=== PATIENT | female | born 1990 | race Caucasian/White ===

== ENCOUNTER 2022-01-15 10:17 | Emergency (ER) | payer BC, SELFPAY ==
--- NOTE | 2022-01-15 10:21 | ED.URI ---
HPI - URI/Sore Throat General Chief Complaint: Upper Respiratory Infection Stated Complaint: sore throat headache runny nose Time Seen by Provider: 01/15/22 11:04 Source: patient and RN notes reviewed Mode of arrival: ambulatory Limitations: no limitations History of Present Illness HPI Narrative: 31-year-old female presents with concern for 2-day history of sore throat, cough, sinus pressure, headache. Reports taking ibuprofen for her symptoms. She denies any known sick contacts. She denies shortness of breath, nausea, vomiting, diarrhea. Reports she has been taking ibuprofen. MD elicited complaint: sore throat Related Data Allergies Allergy/AdvReac Type Severity Reaction Status Date / Time Penicillins Allergy Hives Verified 01/15/22 10:37 Review of Systems Review of Systems: CONSTITUTIONAL: Reports malaise. Denies chills, sweats, or fever. EYES: Denies visual changes, redness, or discharge. ENT: Reports rhinorrhea, congestion, sore throat. Denies sinus pain, otalgia CARDIOVASCULAR: Denies chest pain, palpitations, or edema. RESPIRATORY: Reports cough. Denies dyspnea. GASTROINTESTINAL: Denies abdominal pain, nausea, vomiting, diarrhea SKIN: Denies rash or itching. MUSCULOSKELETAL: Denies myalgia. NEUROLOGIC: Reports headache. All systems reviewed & are unremarkable except as noted in HPI and below PMFSH Comments At time of signature, agree with nursing past medical, surgical, social and family history. There is no relevant family history pertinent to the presenting complaint Exam Narrative: GENERAL: Well-appearing, well-nourished, and in no acute distress. HEAD: Normocephalic EYES: PERRLA, conjunctivae clear ENT: Nares clear, clear discharge. Mucous membranes moist. TM pearly guzman with sharp light reflex bilaterally; no tragal tenderness. Oropharynx erythematous without lesions. Tonsils not enlarged and without exudate, no drooling, no hoarseness, no trismus, uvula midline. NECK: Supple. No lymphadenopathy CHEST: Clear to auscultation, breath sounds equal. No wheezing, rhonchi, rales, or stridor. No respiratory distress, speaks in full sentences. HEART: Regular rate and rhythm. No murmur heard. SKIN: Warm, dry, no rash. NEURO: Alert and oriented x3. PSYCH: Normal mood and affect Course Course Emergency Course: Patient is aware of diagnosis, understands and agrees to treatment plan. Anticipatory guidance given. Patient agrees to follow-up as directed and is aware of reasons to seek care at the emergency department. Portions of this record may have been created with voice recognition software Level of Care: [facility] Visit Vital Signs Vital signs: Reviewed. MDM - URI/Sore Throat MDM Narrative Medical decision making narrative: Differential diagnosis considered: Castellon virus, strep pharyngitis, allergic rhinitis, upper respiratory tract infection, sinusitis, rhinosinusitis, nasopharyngitis. viral pharyngitis, otitis media, otitis externa, pneumonia, bronchitis, viral cough syndrome, viral syndrome, and influenza. Exam findings show no acute concerns or changes; patient is non-toxic appearing and is in no distress. Patient is appropriate for outpatient treatment and follow-up. Lab Data Attestation: I reviewed the patient's lab results. Critical Care Time Critical Care Time Critical Care Time: No Discharge Plan Discharge Clinical Impression: Upper respiratory infection Patient Disposition: Home, Self-Care Condition: Stable Instructions: Upper Respiratory Infection (ED) Additional Instructions: Your rapid COVID test is negative Your rapid strep swab was negative today at [facility]. A throat culture will be sent to the laboratory for further testing. If the test is positive, you will receive a phone call within 48 hours and an appropriate antibiotic will be initiated at that time. Your symptoms are likely due to a viral illness, which is not treated with antibiotics. Viral symptoms can
[2022-01-15 10:25] VITALS: BP 138/96; PULSE 106; RESP 16; TEMP 37.3; O2SAT 100
== END 2022-01-15 11:17 | disposition home or self-care (01) ==
PROVIDERS: Emergency Provider Nurse Practitioner
DX: J06.9 Acute upper respiratory infection, unspecified (principal); Z20.822 Contact with and (suspected) exposure to COVID-19
CPT/HCPCS: 87081; 87426; 87804; 87880; 99213; C9803; G0463

== ENCOUNTER 2022-09-10 12:14 | Emergency (ER) | payer BC, SELFPAY ==
[2022-09-10 12:21] VITALS: BP 155/108; PULSE 96; RESP 16; TEMP 36.7; O2SAT 100
--- NOTE | 2022-09-10 12:30 | ED.DENTAL ---
HPI - Dental/Oral General Chief complaint: Dental/Oral Stated complaint: Toothache Source: patient Mode of arrival: ambulatory Limitations: no limitations History of Present Illness HPI Narrative: Patient presents for evaluation of right lower dental pain for last few days. She indicates she had a filling placed which follow up recently. She was taking some Tylenol for pain as well as ibuprofen. The medications have lost efficacy. She rates her pain 8/10 severity. No fever, chills, nausea, vomiting, trismus, problems handling secretions. States she is not . No additional complaints or concerns. Related Data Allergies Allergy/AdvReac Type Severity Reaction Status Date / Time Penicillins Allergy Hives Verified 01/15/22 10:37 Review of Systems Review of Systems: CONSTITUTIONAL: Denies fever, chills, or sweats. EYES: Denies visual changes, redness, or discharge. ENT: Reports right lower dental pain. Denies rhinorrhea, congestion, sore throat, or otalgia. CARDIOVASCULAR: Denies chest pain, palpitations, or edema. RESPIRATORY: Denies cough or dyspnea. GASTROINTESTINAL: Denies abdominal pain, nausea, vomiting, or diarrhea. GENITOURINARY: Denies dysuria or hematuria. SKIN: Denies rash or itching. MUSCULOSKELETAL: Denies back pain, joint pain, or myalgia. NEUROLOGIC: Denies headache, numbness, dizziness, or weakness. PSYCHIATRIC: Denies anxiety or depression. [facility] Past Medical History Medical History No pertinent past medical history Surgical History Surgical History No pertinent past surgical history Family History Family History Mother Family history non-contributory Social History Social History Smoking status: Never smoker Substance use: never Gender identity (if verbalized by the patient): Female Spiritual care concerns: No Exam Narrative: GENERAL: Well-appearing, well-nourished, and in no acute distress. HEAD: Normocephalic, atraumatic. EYES: PERRLA and EOMI. ENT: Nares clear, no rhinorrhea or epistaxis. Mucous membranes moist. Oropharynx without tonsillar hypertrophy exudate or other lesions. Tooth #31 is fractured. There is no visible or palpable abscess. Bilateral TMs pearly guzman nonbulging NECK: Supple. No adenopathy or masses. No carotid bruits or JVD CHEST: Clear to auscultation. No respiratory distress. No wheezes rales or rhonchi HEART: Regular rate and rhythm. No murmur heard. Normal peripheral pulses. ABDOMEN: Soft, nontender, nondistended, normal active bowel sounds. EXTREMITIES: Normal range of motion. No edema. SKIN: Warm, dry, no rash. NEURO: No focal deficits. Alert and oriented x3. PSYCH: Normal mood and affect. Course Course Emergency Course: This is a 31-year-old female who presented for evaluation of right lower dental pain. She has a dental fracture noted on exam. Pain has been refractory to ibuprofen and Tylenol. Will discharge with clindamycin due to underlying penicillin allergy will also DC with tramadol. Follow up with dentist. Go to the ER for difficulty breathing or swelling. Patient in agreement plan of care for Level of Care: Express Care Visit Vital Signs Vital signs: Vital Signs Temperature 36.7 C 09/10/22 12:21 Pulse Rate 96 09/10/22 12:21 Respiratory Rate 16 09/10/22 12:21 Blood Pressure 155/108 H 09/10/22 12:21 Pulse Oximetry 100 09/10/22 12:21 Oxygen Delivery Room Air 09/10/22 12:21 Temperature 36.7 C 09/10/22 12:21 Pulse Rate 96 09/10/22 12:21 Respiratory Rate 16 09/10/22 12:21 Blood Pressure 155/108 H 09/10/22 12:21 Pulse Oximetry 100 09/10/22 12:21 Oxygen Delivery Room Air 09/10/22 12:21 Discharge Plan Discharge Clinical Impression: Fracture of too
== END 2022-09-10 12:35 | disposition home or self-care (01) ==
PROVIDERS: Emergency Provider Nurse Practitioner; PCP Emergency Medicine
DX: S02.5XXA Fracture of tooth (traumatic), initial encounter for closed fracture (principal); X58.XXXA Exposure to other specified factors, initial encounter
CPT/HCPCS: 99213; G0463

== ENCOUNTER 2022-09-19 13:35 | Emergency (ER) | payer BC, SELFPAY ==
[2022-09-19 13:40] VITALS: BP 116/70; PULSE 99; RESP 16; TEMP 36.3; O2SAT 100
--- NOTE | 2022-09-19 13:43 | ED.SKABFB ---
HPI - Skin/Abscess/Foreign Bdy General Chief complaint: Skin/Abscess/Foreign Body Stated complaint: Rash Source: patient and RN notes reviewed History of Present Illness HPI narrative: 31 yo F presents to ED with complaints of a rash to her abdomen, neck and face. Pt states she first noticed this rash last night and reports associated pruritis. Pt was started on an Abx, clindamycin, on 09/10/22 for a dental infection. Pt states she started the med on the night of 09/10 and did take a dose this morning. Denies any fevers, chills, SOB, trouble swallowing, vomiting, or diarrhea. Pt has not had anything for her symptoms. Related Data Home Medications Medication Instructions Recorded Confirmed olmesartan 40 1 tablet PO DAILY 09/19/22 09/19/22 mg-hydrochlorothiazide 25 mg tablet semaglutide 2 mg/dose (8 mg/3 mL) See Rx Instructions .Route .COMPLEX 09/19/22 09/19/22 subcutaneous pen injector (Ozempic) Allergies Allergy/AdvReac Type Severity Reaction Status Date / Time Penicillins Allergy Hives Verified 09/19/22 13:53 Review of Systems Review of Systems: CONSTITUTIONAL: Denies fever, chills, or sweats. EYES: Denies visual changes, redness, or discharge. ENT: Denies otalgia and sore throat CARDIOVASCULAR: Denies chest pain, palpitations, or edema. RESPIRATORY: Denies cough or dyspnea. GASTROINTESTINAL: Denies abdominal pain, nausea, vomiting, or diarrhea. GENITOURINARY: Denies dysuria or hematuria. SKIN: Reports rash or itching. MUSCULOSKELETAL: Denies back pain, joint pain, or myalgia. [facility] Past Medical History Medical History (Updated 09/19/22 @ 13:56 by Kenia Jiménez, LAINE) No pertinent past medical history Surgical History Surgical History No pertinent past surgical history Family History Family History Mother Family history non-contributory Social History Social History Smoking status: Never smoker Substance use: never Gender identity (if verbalized by the patient): Female Spiritual care concerns: No Comments At the time of my signature, I reviewed and agree with the nursing past medical, surgical, social, and family history. There is no relevant family history pertinent to the patient complaint. Exam Narrative: GENERAL: This is a well-nourished, well-developed patient, in no apparent distress. HEAD: normocephalic, atraumatic. EYES: PERRL. Sclera clear/white. Vision is grossly intact. EARS: External ears normal, auditory canals clear and without drainage, TMs normal without perforation. Hearing grossly intact. NOSE: External nose normal with no obvious nasal discharge, nares without redness, no rhinorrhea. THROAT: Mucous membranes moist, posterior pharynx clear. NECK: Neck supple, non-tender without lymphadenopathy, masses or thyromegaly. CARDIOVASCULAR: Regular rate and rhythm without murmurs, gallops, or rubs. RESPIRATORY: Clear to auscultation. Breath sounds equal bilaterally. No wheezes, rales, or rhonchi. GASTROINTESTINAL: Abdomen soft, non-tender, nondistended. Bowel sounds are active. No hepato-splenomegaly, or palpable masses. No guarding. SKIN: erythremic, fine, papules noted to anterior and posterior trunk, neck, and chin. no drainage noted. NEURO: awake, alert, and oriented to person, place and time. There were no obvious focal neurologic abnormalities. Course Course Level of Care: Express Care Visit Vital Signs Vital signs: Vital Signs Temperature 97.4 F L 09/19/22 13:40 Pulse Rate 99 09/19/22 13:40 Respiratory Rate 16 09/19/22 13:40 Blood Pressure 116/70 09/19/22 13:40 Pulse Oximetry 100 09/19/22 13:40 Oxygen Delivery Room Air 09/19/22 13:40 Temperature 97.4 F L 09/19/22 13:40 Pulse Rate 99 09/19/22 13:40 Respiratory Rate 16 09/19/22 13:40 Blood Pres
== END 2022-09-19 14:00 | disposition home or self-care (01) ==
PROVIDERS: Emergency Provider Nurse Practitioner Family; PCP Family Medicine
DX: R21 Rash and other nonspecific skin eruption (principal); T78.40XA Allergy, unspecified, initial encounter
CPT/HCPCS: 99213; G0463

== ENCOUNTER 2024-04-26 18:11 | Emergency (ER) | payer OTHER, BC, SELFPAY ==
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
--- NOTE | ~2024-04-26 | XR_ITS ---
AP and oblique views of the left ribs, and PA and lateral chest radiographs Clinical History: Pain Findings: No rib fracture is seen. Osseous alignment is anatomic. Lungs are clear, without focal cons olidation or pleural effusion. Cardiomediastinal contour is within normal limits. Soft tissues are un remarkable. Impression: No rib fracture is seen. Clear lungs. Reviewed, dictated and finalized at location . Impression: No rib fracture is seen. Clear lungs.
--- NOTE | ~2024-04-26 | CT_ITS ---
Noncontrast CT scan of the cervical spine Technique: Multiple contiguous axial [address] images of the cervical spine were obtained and rec onstructed in 2D sagittal and coronal planes on the acquisition scanner. Dose reduction technique was used on this scan by utilizing automated exposure control, adjustment of the mA and/or kV according to patient size. The dose-length product (DLP) was 551.72 mGy-cm. Clinical History: Pain Findings: No fractures or dislocations. Unremarkable visualized bony structures. The intervertebral disc spaces are preserved. No prevertebral soft tissue swelling. Impression: No fracture or subluxation of the cervical spine. Reviewed, dictated and finalized at location . Impression: No fracture or subluxation of the cervical spine.
--- NOTE | ~2024-04-26 | XR_ITS ---
AP view of the pelvis and AP and lateral views of the left hip Clinical history: Pain Findings: No acute fracture or dislocation is seen. Osseous alignment is anatomic. Bilateral hip and SI joint spaces are preserved. Soft tissues are unremarkable. IUD present. Impression: No significant abnormality is seen. Reviewed, dictated and finalized at [facility]. Impression: No significant abnormality is seen.
--- NOTE | ~2024-04-26 | CT_ITS ---
Noncontrast CT scan of the lumbar spine CLINICAL HISTORY: Back pain TECHNIQUE: Axial noncontrast imaging of the lumbar spine was performed. Sagittal and coronal reformat castro images were constructed. Dose reduction technique was used on this scan by utilizing automated ex posure control and iterative reconstruction technique. The dose-length product (DLP) was 1375.41 mGy- cm. FINDINGS: There is no fracture or subluxation of the lumbar spine. Vertebral bodies maintain normal h eight and alignment. Intervertebral disc spaces are relatively well-preserved with mild degenerative disc narrowing at L4-L5. At L1-L2, there is no significant disc bulge or herniation. No spinal canal stenosis or neural forami nal narrowing. At L2-L3, there is minimal disc bulge. No spinal canal stenosis. Probable mild bilateral neural regina inal narrowing. L3-L4, there is mild disc bulge and mild facet joint hypertrophy. No dona central canal stenosis. Th ere is probable minimal bilateral neural foraminal narrowing. At L4-L5, there is minimal disc bulge and mild facet arthropathy. No central canal stenosis. Neural f oramina are preserved. At L5-S1, there is no disc bulge or herniation. No spinal canal stenosis or neural foraminal narrowin g. Paravertebral soft tissues are unremarkable. IUD in place. Gallstones incidentally noted. Impression: No acute abnormality. Mild degenerative spondylosis, as above. Gallstones incidentally noted. Reviewed, dictated and finalized at [facility]. Impression: No acute abnormality. Mild degenerative spondylosis, as above. Gallstones incidentally noted.
[2024-04-26 18:23] VITALS: BP 147/99; PULSE 100; RESP 18; TEMP 36.5; O2SAT 100
[2024-04-26 23:04] VITALS: BP 156/98; PULSE 85; RESP 18; O2SAT 98
[2024-04-27] VITALS (27 sets, daily range): BP systolic 126–163; BP diastolic 80–116; PULSE 66–115; RESP 13–25; TEMP 37.2; O2SAT 97–100
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
--- NOTE | 2024-04-27 01:40 | PC.NURSE ---
pt ambulatory with steady gait to restroom to attempt to provide urine specimen for bedside preg at this time.
[2024-04-27 01:48] LABS: BEDSIDEPREGUCG Negative (Negative)
== END 2024-04-27 03:38 | disposition home or self-care (01) ==
PROVIDERS: Emergency Provider Physician Assistant
DX: S16.1XXA Strain of muscle, fascia and tendon at neck level, initial encounter (principal); E11.9 Type 2 diabetes mellitus without complications; Z79.85 Long-term (current) use of injectable non-insulin antidiabetic drugs; M47.816 Spondylosis without myelopathy or radiculopathy, lumbar region; K80.20 Calculus of gallbladder without cholecystitis without obstruction; V49.40XA Driver injured in collision with unspecified motor vehicles in traffic accident, initial encounter
CPT/HCPCS: 70450; 71046; 71100; 72125; 72131; 73502; 81025; 99284; L0140

== ENCOUNTER 2024-10-24 14:50 | Emergency (ER) | payer BC, SELFPAY ==
--- OUTSIDE RECORDS SUMMARY | 2024-10-24 14:52 | XMS_ITS | CONTINUITY OF CARE DOCUMENT ---
Author Name burt jasonlebron Address Unknown Organization [facility] Address [id number] [place] [address] [address] [place] [address] Phone [phone] Care Team Providers Care Environmental Construction Engineer Name Role Phone Shayy MORALES, Justino Unavailable Justino Lucas MD Unavailable [phone] PROBLEMS Condition Status Date Provider Notes Prediabetes active Justino Lucas MD Vitamin D deficiency active Justino Starkey D B12 deficiency active Justino Lucas MD nml iron Screening active Justino Lucas MD Hyperlipidemia;NEG CRP active Justino Lucas MD Obesity active Justino Lucas MD covid 19;22 post vaccine active Justino garay MD HTN essential active Justino Lucas MD ? Sleep apnea active Justino Lucas MD ENCOUNTERS Date Type Provider Location Encounter Diag nosis - In-person encounter Office Visit Justino [facility] MD [facility] - In-person encounter Office Visit Justino Lucas MD [facility] - In-person encounter Office Visit Justino Lucas MD [facility] Obesitycovid 19;22 post vaccineHTN essential? Sleep apnea VITAL SIGNS Date Observation Value Provider Body Mass Index (Ratio) 36.56 kg/m2 Roque Lucas MD blood pressure, diastolic 124 mm[Hg] Claire Winter blood pressure, systolic 162 mm[Hg] Patrick Winter oxygen saturation, oximetry 99 % Rossi Winter pulse rate 90 /min Rossi man blood pressure, cuff size large Claire Winter respiratory rate E&M 16 /min Amaris Winter weight E&M 213 [lb_av] Rossi man height E&M 64 [in_i] Rossi man Body Mass Index (Ratio) 39.61 kg/m2 Roque Lucas MD blood pressure, diastolic 113 mm[Hg] St dayron Ragsdale blood pressure, systolic 151 mm[Hg] Sta nathalie Ragsdale oxygen saturation, oximetry 96 % Cathy Ragsdale respiratory rate E&M 18 /min Cathy winter pulse rate 85 /min Cathynathalie Ragsdale weight E&M 230.8 [lb_av] Cathynathalie Ragsdale height E&M 64 [in_i] Cathynathalie Ragsdale Body Mass Index (Ratio) 41.71 kg/m2 Roque Lucas MD blood pressure, cuff size large Claire Sanchezand blood pressure, diastolic 123 mm[Hg] Claire Sanchezand blood pressure, systolic 169 mm[Hg] Patrick amato Winter oxygen saturation, oximetry 98 % Rossi Winter respiratory rate E&M 16 /min Amaris Winter pulse rate 69 /min Rossi man height E&M 64 [in_i] Rossi man weight E&M 243 [lb_av] Rossi man ALLERGIES Allergy Name Onset Date Reaction Criticality Status PENICILLIN High Criticality active RESULTS Date Observation Value Provider Reference Range Interpretation Location 2 calcium, serum 8.9 mg/dL [facility] 8.5-10.3 Normal C, [place] [address] 2 blood glucose, random 93 mg/dL [facility] 70-199 Normal , [place] [address] 2 creatine, serum 0.53 mg/dL [facility] 0.60-1.10 Low C, [place] [address] 2 urea nitrogen, blood 12 mg/dL [facility] 8-25 Normal C, [place] [address] 2 anion gap, serum 13 mmol/L [facility] 2-15 Normal , [place] [address] 2 carbon dioxide, venous blood 20 mmol/L [facility] 22-32 Low C, [place] [address] 2 chloride, serum 103 mmol/L [facility] 97-110 Normal , [place] [address] 2 potassium, serum 4.4 MMOL/L [facility] 3.3-4.9 Normal , [place] [address] 2 sodium, serum 137 mmol/L [facility] 135-145 Normal , [place] [address] 2 Estimated Glomerular Filtration Rate (calc) 126 mL/min/{1 .73_m2} [facility] , [place] [address] 2 cholesterol, non-HDL, total 151 [facility]/dL [facility] , [place] [address] 2 HDL CHOLESTEROL 55 mg/dL [facility] >=40 Normal , [place] [address] 2 triglyceride, serum, fasting 81 mg/dL [facility] <=149 Normal , [place] [address] 2 cholesterol, serum 206 mg/dL [facility] 30-199 High [place] [address] 2 c reactive protein, qualitative <3.0 [facility] <=10.0 Normal , [place] [address] 2 microalbumin/cre atinine ratio, urine <10 mg/g [facility] 1-29 Normal [place] [address] 2 creatinine, random, urine 120.5 mg/dL [facility] [place] [address] 2 microalbumin, random, urine <12.0 mg/[facility] [place] [address] 2 Absolute Basophils 0.1 K/CUMM [facility] 0.0-0.1 Normal [place] [address] 2 Absolute Monocytes 0.7 K/CUMM [facility] 0.2-0.8 Normal [place] [address] 2 Absolute Lymphocytes 2.1 K/CUMM [facility] 0.8-3.3 Normal [place] [address] 2 Absolute Neutrophils 6.5 K/CUMM [facility] 1.7-6.5 Normal [place] [address] 2 nucleated red blood cells as percent of blood leukocytes 0.00 K/CUMM [facility] 0.00-0.01 Normal 2 red blood cell distribution width, size density 41.4 fL [facility] 35.7-48.1 Normal 2 mean corpuscular hemoglobin concentration, RBC 32.4 G/DL [facility] 32.3-35.7 Normal 2 mean corpuscular hemoglobin, RBC 28.5 pg [facility] 27.1-33.3 Normal 2 mean corpuscular volume, RBC 88.0 fL [facility] 81.3-96.4 Normal 2 erythrocyte count, whole blood 5.09 M/CUMM [facility] 3.90-5.20 Normal 2 mean platelet volume 11.5 fL [facility] 9.1-12.3 Normal 2 platelet count 272 10*3/uL [facility] 150-400 Normal 2 hematocrit, blood 44.8 % [facility] 35.6-45.5 Normal 2 hemoglobin, blood 14.5 g/dL [facility] 11.9-15.5 Normal HISTORY OF MEDICATION USE Medication Status Instructions Dates Provider Indications Com ments Arelis 2.4 mg/0.75 mL pen injector active 1 pen injector subcutaneously once a week Justino Lucas MD Ozempic 2 mg/dose (8 mg/3 mL) pen injector completed Inject 2 mg subcutaneously once a week - Justino Lucas MD Ozempic 0.25 mg or 0.5 mg(2 mg/1.5 mL) pen injector completed INJECT 1/4 MG SUBCUTANEOUSLY ONCE A WEEK TAKE 0.25MG ONCE A WEEK X4 WEEKS THEN INCREASE TO 0.5MG WEEKLY - Kaleigh Contreras NP olmesartan-hydroch lorothiazide 40-25 mg tablet active 1 tablet by mouth once a day Justino Lucas MD Ozempic 1 mg/dose (4 mg/3 mL) pen injector completed Inject 1 mg subcutaneously once a week - Carlos Green ergocalciferol (vitamin D2) 1,250 mcg (50,000 unit) capsule active 1 capsule by mouth once a month Justino Lucas MD cyanocobalamin (vitamin B-12) 1,000 mcg capsule active 1 capsule by mouth once a day Justino Lucas MD Ozempic 0.25 mg or 0.5 mg(2 mg/1.5 mL) pen injector completed Inject 1/4 mg subcutaneously once a week Take 0.25mg once a week x4 weeks then increase to 0.5mg weekly - Justino Lucas MD SOCIAL HISTORY Date Observation Value Provider smoking status Never smoker Rossi Sanchez and social history E&M S moking History: Chavo lazo has never smoked. Justino Lucas MD social history reviewed E&M revi ewed - no changes required Justino Lucas MD smoking status Never smoker Cathy Ragsdale social history E&M S moking History: Chavo lazo has never smoked. Justino Lucas MD social history reviewed E&M revi ewed - no changes required Justino Lucas MD smoking status Never smoker Rossi Sanchez and INSURANCE PROVIDERS Payer name Policy type / Coverage type [place] red [employer] party ID [facility] [id number] ADVANCE DIRECTIVES Name Date DISCUSSED - NO DECISION MADE TREATMENT PLAN Date Name Performer [id number],C,Lost 30 lbs s amaris 03/2022 Kaleigh Nalluri NEWS SPECIALIST [id number],C,B P 162/124, not controleld well. Not complaint with medications. H er updated medication list for this problem includes: Olmesartan-hydrochlorothiazide 40-25 Mg Tablet (Olmesartan-hydrochlorothiazide) ..... 1 tablet by mouth once a day Orders: 9 9214 MOD 30-39min (CPT-32270) C omplete Echo (CPT-60628) S [facility] Study Home (CPT-20740) S [facility] Study Home (CPT-58762) Kaleigh Nalluri NEWS SPECIALIST [id number],C,Ordered home sleep study Kaleigh Nalluri NEWS SPECIALIST [id number],C, Chol 206,trig 81, HDL 55, LDL 135 Kaleigh Nalluri NEWS SPECIALIST [id number],C,On supplement s Kaleigh Nalluri NEWS SPECIALIST [id number],C,On supplemets Kaleigh Nalluri NEWS SPECIALIST [id number],B, Justino [place] carol MORALES [id number],S, Justino Serot a [id number],S, s x Justino Lucas MD [id number],W, B P today: 151/113 P rior BP: 169/123 (03/22/2022) Labs Reviewed: C hol: 206 (03/22/2022) Justino Lucas MD [id number],S, Justino Serot carol MORALES [id number],S, Justino Serot a [id number],S, N EG UACR AND A2C AND ECHO Justino Lucas MD [id number],S, Justino Serot carol MORALES [id number],C,NEG UACR AND A2C AND ECHO Justino Lucas MD [id number],C,nml a1c and u acr Justino Lucas MD [id number],S,sx Justino Ser olvin MORALES [id number],S, Justino Serot carol MORALES [id number],S, Justino Serot carol MORALES [id number],S, Justino Serot carol MORALES Cardiology:Lost 30 lbs since 03/12 022 Kaleigh Nalluri NEWS SPECIALIST Cardiology:BP 162/12 4, not controleld well. Not complaint with medications. H er updated medication list for this problem includes: Olmesartan-hydrochlorothiazide 40-25 Mg Tablet (Olmesartan-hydrochlorothiazide) ..... 1 tablet by mouth once a day Orders: 9 9214 MOD 30-39min (CPT-26189) C omplete Echo (CPT-47222) S lee Study Home (CPT-97230) S lee Study Home (CPT-84501) Kaleigh Nalluri NEWS SPECIALIST Cardiology:Ordered home sleep st udy Kaleigh Nalluri NEWS SPECIALIST Cardiology: Chol 206,trig 81, HDL 55, LDL 135 Kaleigh Nalluri NEWS SPECIALIST Cardiology:On supplements Neelim a Nalluri NEWS SPECIALIST Cardiology:On supplemets Kaleigh Nalluri NEWS SPECIALIST Cardiology Justino Lucas MD Cardiology Justino Lucas MD Cardiology: s x Justino Lucas MD Cardiology: B P today: 151/113 P rior BP: 169/123 (03/22/2022) Labs Reviewed: C hol: 206 (03/22/2022) Justino Lucas MD Cardiology Justino Lucas MD Cardiology Justino Lucas MD Cardiology: N EG UACR AND A2C AND ECHO Justino Lucas MD Cardiology Justino Lucas MD :NEG UACR AND A2C AND ECHO Jose Alfredo Lucas MD :nml a1c and uacr Justino Lucas MD Cardiology:sx Justino Lucas MD Cardiology Justino Lucas MD Cardiology Justino Lucas MD Cardiology Justino Lucas MD Date Name Sleep Study Home Complete Echo Complete Echo Sleep Study Home Sleep Study Home VITAMIN B12 Vitamin D, 25-Hydrox y IRON AND TOTAL IRON BINDING CAPACITY FERRITIN CBC (INCLUDES DIFF/P LT) CRP, high sensitivit y Microalb/Creatinine Urine, Random HEMOGLOBIN A1c BASIC METABOLIC PANE L W/EGFR LIPID PANEL Complete Echo
--- OUTSIDE RECORDS SUMMARY | 2024-10-24 14:52 | XMS_ITS | Referral Summary ---
Author Organization [facility] Address [address] [place] [address] Care Team Providers Care Application Software Engineer Name Role Phone Unavailable Primary Care Provider Unavailabl e Source Comments [facility],non-owned Affiliates and Associated Physician Practices is amultiple site organization consisting of ambulatory clinics and hospital sitesin [place], [place], [place] and [place]. This disclosure is being madepursuant to the Care Everywhere program and may not contain all information available regarding this patient. Last updated 18.[facility] [employer] Allergies No known active allergies Medications Be aware that medications may not be up to date on this document. Always verify current medications with the patient. No known medications Active Problems No known active problems Social History Tobacco Use Types Packs/Day Years Used Date Smoking Tobacco: Never Smokeless Tobacco: Never Sex and Gender Information Value Date Recorded Sex Assigned at Not on file Gender Identity Not on file Sexual Orientation Not on file Last Filed Vital Signs Vital Sign Reading Time Taken Comments Blood Pressure 124/70 12/11/2020 10:39 AM CDT Pulse 70 12/11/2020 10:39 AM CDT Temperature 36.9 C (98.4 F) 12/11/2020 10:39 AM CDT Respiratory Rate 20 12/11/2020 10:39 AM CDT Oxygen Saturation 98% 04/03/2020 3:42 PM CDT Inhaled Oxygen Concentration - - Weight 105.7 kg (233 lb) 12/11/2020 10:39 AM CDT Height 165.1 cm (5' 5 ) 04/03/2020 3:42 PM CDT Body Mass Index 38.77 04/03/2020 3:42 PM CDT Plan of Treatment Not on file
--- OUTSIDE RECORDS SUMMARY | 2024-10-24 14:52 | XMS_ITS | Patient Health Summary ---
Author Organization [facility] Address [address] [place] [address] Care Team Providers Care Implementation Technician Name Role Phone Unavailable Primary Care Provider Unavailabl e Note from [facility],non-owned Affiliates and Associated Physician Practices is amultiple site organization consisting of ambulatory clinics and hospital sitesin [place], [place], [place] and [place]. This disclosure is being madepursuant to the Care Everywhere program and may not contain all information available regarding this patient. Last updated 18.[facility] Allergies No known active allergies Medications Be [...] Mass Index 38.77 04/03/2020 3:42 PM CDT Procedures * CULTURE RESPIRATORY UPPER(Performed 12/11/2020) Performed for Acute pharyngitis, unspecified etiology * STREP A SCREEN - POINT OF CARE (AMB) STL(Performed 12/11/2020) Performed for Acute pharyngitis, unspecified etiology * CULTURE URINE(Performed 04/03/2020) Performed for Acute cystitis with hematuria * URINALYSIS AUTO - POINT OF CARE (AMB) STL(Performed 04/03/2020) Performed for Acute cystitis with hematuria * CULTURE URINE(Performed 01/19/2020) Performed for Acute cystitis without hematuria * URINALYSIS AUTO - POINT OF CARE (AMB) STL(Performed 01/19/2020) Performed for Acute cystitis without hematuria * URINALYSIS AUTO - POINT OF CARE (AMB) STL(Performed 01/19/2019) Performed for Urinary tract infection without hematuria, site unspecified Results * CULTURE RESPIRATORY UPPER (12/11/2020 10:47 AM CDT) [facility] Upper Respiratory Culture Final report [facility] ACCOUNT BILL Result 1 [facility] ACCOUNT BILL Comment:Routine respiratory martínez Microbiology ENTIRE THROAT (SURFACE REGION OF NECK) / Unknown 12/11/2020 10:47 AM CDT 12/11/2020 Narrative Resulting Agency Comment Lab Testing performed at: [facility] [address] [phone] Niko Chadwick APRN-BALLISTIC TECHNICIAN LAB - MICRO BIOLOGY ORDERABLES Performing Organization Address City/[facility]/ZIP Co de Phone Number [facility] ACCOUNT BILL [address] [place] [address] * STREP A SCREEN - POINT OF CARE (AMB) STL (12/11/2020 10:43 AM CDT) Pathologist [facility] Strep A Rapid POCT Negative Negative [facility] Strep A Internal Control Present [facility] Lot # [id number] [facility] Expiration Date [id number] [facility] Throat ENTIRE THROAT (SURFACE REGION OF NECK) / Unknown 12/11/2020 10:43 AM CDT Niko Chadwick APRN-BALLISTIC TECHNICIAN LAB - POINT OF CARE ORDERABLES [facility] [address] [phone] * CULTURE URINE (04/03/2020 3:58 PM CDT) Only the most recent of2 resultswithin the time period is included. Pathologist [facility] Urine Culture Routine Final report [facility] ACCOUNT BILL Result 1 No growth [facility] ACCOUNT BILL Urine URINE SPECIMEN OBTAINED BY CLEAN CATCH PROCEDURE / Unknown 04/03/2020 3:58 PM CDT 04/03/2020 Narrative Resulting Agency Comment Lab Testing performed at: [facility] [address] [phone] Niko Chadwick VICE PRESIDENT INTEGRATED-BALLISTIC TECHNICIAN LAB - MICRO BIOLOGY ORDERABLES [facility] ACCOUNT BILL [address] [place] [address] * URINALYSIS AUTO - POINT OF CARE (AMB) STL (04/03/2020 3:52 PM CDT) Only the most recent of3 resultswithin the time period is included. Pathologist [facility] Clarity UA POCT azo Color UA POCT red Leukocyte UA azo Negative Nitrite UA POCT azo Negative Urobilinogen UA 0.2 0.1 - 1.0 Protein UA POCT azo Negative pH UA 5.0 5.0 - 8.0 pH units Blood UA 50 Negative Specific Fraser UA POCT 1.030 1.002 - 1.030 Ketone UA azo Negative Bilirubin UA POCT azo Negative Glucose UA azo Negative Expiration Date 1 Lot # [id number] QC Verified Yes Yes Urine URINE / Unknown 04/03/2020 3 :52 PM CDT Niko Chadwick VICE PRESIDENT INTEGRATED-BALLISTIC TECHNICIAN LAB - POINT OF CARE ORDERABLES
--- OUTSIDE RECORDS SUMMARY | 2024-10-24 14:52 | XMS_ITS | Clinical Summary ---
Author Organization [facility] Address [address] [place] [address] Care Team Providers Care Business Control Manager Name Role Phone Unavailable Primary Care Provider Unavailabl e Source Comments [facility],non-owned Affiliates and Associated Physician Practices is amultiple site organization consisting of ambulatory clinics and hospital sitesin [place], [place], [place] and [place]. This disclosure is being madepursuant to the Care Everywhere program and may not contain all information available regarding this patient. Last updated 18.[facility] Allergies No known active allergies Medications Be [...] 04/03/2020 3:42 PM CDT Plan of Treatment Health Maintenance Due Date Last Done Comments PAP SMEAR 1989 HIV SCREENING 2004 HEPATITIS C SCREENING 11/02/2007 DTAP/TDAP/TD VACCINES (1 - Tdap) 2008 HEPATITIS B VACCINE (1 of 3 - 19+ 3-dose series) 2008 COVID-19 VACCINE (1 - 2023-2 5 season) 2024 INFLUENZA VACCINE (#1) 2024 DEPRESSION SCREENING 08/11/2024 ZOSTER VACCINE (1 of 2) 11/07/2039 HIB VACCINE Aged Out No longer eligi ble based on patient's age to complete this topic HPV VACCINE Aged Out No longer eligi ble based on patient's age to complete this topic MENINGOCOCCAL (Group B) VACC INE SHARED DECISION-MAKING Aged Out No longer eligibl e based on patient's age to complete this topic MENINGOCOCCAL GROUPS A/C/Y/W VACCINE Aged Out No longer eligible b ased on patient's age to complete this topic PNEUMOCOCCAL VACCINE Aged Out No long er eligible based on patient's age to complete this topic
--- OUTSIDE RECORDS SUMMARY | 2024-10-24 14:54 | XMS_ITS | CONTINUITY OF CARE DOCUMENT ---
Author Name burt jasonlebron Address Unknown Organization [facility] Address [address] [place] [address] [address] [place] [address] Phone [phone] Care Team Providers Care Professor Of Theology Name Role Phone Shayy MORALES, Justino Unavailable [phone] Justino Lucas MD Unavailable PROBLEMS Condition Status Date Provider Notes Prediabetes [...] In-person encounter Office Visit Justino Lucas MD [facility] - In-person encounter Office Visit Justino Lucas MD [facility] - In-person encounter Office Visit Justino Lucas MD [facility] Obesitycovid 19;22 post vaccineHTN essential? Sleep [...] serum 8.9 mg/dL [facility] 8.5-10.3 Normal C, [place] [address] 2 blood glucose, random 93 mg/dL [facility] 70-199 Normal , [place] [address] 2 creatine, serum 0.53 mg/dL [facility] 0.60-1.10 Low C, [place] [address] 2 urea nitrogen, blood 12 mg/dL [facility] 8-25 Normal C, [place] [address] 2 anion gap, serum 13 mmol/L [facility] 2-15 Normal , [place] [address] 2 carbon dioxide, venous blood 20 mmol/L [facility] 22-32 Low C, [place] [address] 2 chloride, serum 103 mmol/L [facility] 97-110 Normal , [place] [address] 2 potassium, serum 4.4 MMOL/L [facility] 3.3-4.9 Normal , [place] [address] 2 sodium, serum 137 mmol/L [facility] 135-145 Normal , [place] [address] 2 Estimated Glomerular Filtration Rate (calc) 126 mL/min/{1 .73_m2} [facility] , [place] [address] 2 cholesterol, non-HDL, total 151 mg[facility] [place] [address] 2 HDL CHOLESTEROL 55 mg/dL [facility] >=40 Normal , [place] [address] 2 triglyceride, serum, fasting 81 mg/dL [facility] <=149 Normal , [place] [address] 2 cholesterol, serum 206 mg/dL [facility] 30-199 High [place] [address] 2 c reactive protein, qualitative <3.0 [facility] <=10.0 Normal , [place] [address] 2 microalbumin/cre atinine ratio, urine <10 mg/g [facility] 1-29 Normal [place] [address] 2 creatinine, random, urine 120.5 mg/dL [facility] [place] [address] 2 microalbumin, random, urine <12.0 mg/[facility] [place] [address] 2 Absolute Basophils 0.1 K/CUMM [facility] 0.0-0.1 Normal [place] [address] 2 Absolute Monocytes 0.7 K/CUMM [facility] 0.2-0.8 Normal [place] [address] 2 Absolute Lymphocytes 2.1 K/CUMM [facility] 0.8-3.3 Normal [place] [address] 2 Absolute Neutrophils 6.5 K/CUMM [facility] 1.7-6.5 Normal [place] [address] 2 nucleated red blood cells as percent [...] Payer name Policy type / Coverage type [place] red democrat ID [facility] [id number] ADVANCE DIRECTIVES Name Date DISCUSSED - NO DECISION MADE TREATMENT PLAN Date Name Performer [id number],C,Lost 30 lbs s amaris 03/2022 Kaleigh Nalluri ESTATE AGENT [id number],C,B P 162/124, not controleld well. Not complaint with medications. H er updated medication list for this problem includes: Olmesartan-hydrochlorothiazide 40-25 Mg Tablet (Olmesartan-hydrochlorothiazide) ..... 1 tablet by mouth once a day Orders: 9 9214 MOD 30-39min (CPT-88847) C omplete Echo (CPT-25307) S [facility] Study Home (CPT-54054) S [facility] Study Home (CPT-63361) Kaleigh Nalluri ESTATE AGENT [id number],C,Ordered home sleep study Kaleigh Nalluri ESTATE AGENT [id number],C, Chol 206,trig 81, HDL 55, LDL 135 Kaleigh Nalluri ESTATE AGENT [id number],C,On supplement s Kaleigh Nalluri ESTATE AGENT [id number],C,On supplemets Kaleigh Nalluri ESTATE AGENT [id number],B, Justino [place] carol MORALES [id number],S, Justino Serot a [id number],S, s x Justino Lucas MD [id number],W, B P today: 151/113 P rior BP: 169/123 (03/22/2022) Labs Reviewed: C hol: 206 (03/22/2022) Justino Lucas MD [id number],S, Justino Serot carol MORALES [id number],S, Justino Serot a [id number],S, N EG UACR AND A2C AND ECHO Justino Lucas MD [id number],S, Justino Serot carol MORALES [id number],C,NEG UACR AND A2C AND ECHO Justino Lucas MD [id number],C,nml a1c and u acr Justino Lucas MD [id number],S,sx Justino Ser olvin MORALES [id number],S, Justino Serot carol MORALES [id number],S, Justino Serot carol MORALES [id number],S, Justino Serot carol MORALES Cardiology:Lost 30 lbs since 03/12 022 Kaleigh Nalluri ESTATE AGENT Cardiology:BP 162/12 4, not controleld well. Not complaint with medications. H er updated medication list for this problem includes: Olmesartan-hydrochlorothiazide 40-25 Mg Tablet (Olmesartan-hydrochlorothiazide) ..... 1 tablet by mouth once a day Orders: 9 9214 MOD 30-39min (CPT-70202) C omplete Echo (CPT-65572) S lee Study Home (CPT-41626) S lee Study Home (CPT-52491) Kaleigh Nalluri ESTATE AGENT Cardiology:Ordered home sleep st udy Kaleigh Nalluri ESTATE AGENT Cardiology: Chol 206,trig 81, HDL 55, LDL 135 Kaleigh Nalluri ESTATE AGENT Cardiology:On supplements Neelim a Nalluri ESTATE AGENT Cardiology:On supplemets Kaleigh Nalluri ESTATE AGENT Cardiology Justino Lucas MD Cardiology Justino Lucas [...] a1c and uacr Justino Lucas MD Cardiology:sx Jsutino Lucas MD Cardiology Justino Lucas MD Cardiology [...]
[2024-10-24 14:59] VITALS: BP 148/97; PULSE 112; RESP 16; TEMP 36.2; O2SAT 99
--- NOTE | 2024-10-24 15:11 | ED_ITS ---
HPI - URI/Sore Throat General Chief Complaint: Upper Respiratory Infection Stated Complaint: Cough/Body Aches/Light Headed Time Seen by Provider: 10/24/24 15:11 Source: patient, RN notes reviewed and old records reviewed Mode of arrival: ambulatory Limitations: no limitations History of Present Illness HPI Narrative: 33 year old female who presents to [facility] care with complaints of cough,congestion, body aches,fevers, and feels light headed at times since . Patient reports that she has been taking Tylenol cold and flu for her symptoms. Patient reports that she has been exposed to flu from a coworker. MD elicited complaint: fever, cough, rhinorrhea, nasal congestion and other (body aches, light headed) Onset (ago): day(s) (4 days) Consistency: constant Severity: moderate Pain scale (0-10): 7 Able to tolerate fluids by mouth: Yes Treatments prior to arrival: other (Tylenol cold and flu) Related Data Home Medications ?Medication ?Instructions ?Recorded ?Confirmed ?Last Taken ?Type levonorgestrel (Mirena) 1 device intrauterine ONCE 10/24/24 Unknown History Allergies Allergy/AdvReac Type Severity Reaction Status Date / Time Penicillins Allergy Hives Verified 10/24/24 14:57 Review of Systems Review of Systems: CONSTITUTIONAL: reports malaise, chills, sweats, or fever. EYES: Denies visual changes, redness, or discharge. ENT: Reports rhinorrhea, congestion, no sinus pain, no otalgia and no sore throat. CARDIOVASCULAR: Denies chest pain, palpitations, or edema. RESPIRATORY: Reports cough.? Denies dyspnea. GASTROINTESTINAL: Denies abdominal pain, nausea, vomiting, diarrhea SKIN: Denies rash or itching. MUSCULOSKELETAL:Reports myalgia. NEUROLOGIC: Denies headache. All systems reviewed & are unremarkable except as noted in HPI and below [facility] Past Medical History Medical History (Updated 10/25/24 @ 22:09 by Ana Marques NP) Rosacea Diabetes Hypertension GERD (gastroesophageal reflux disease) Surgical History Surgical History No pertinent past surgical history Family History Family History Mother Family history non-contributory Social History Social History Smoking status: Never smoker Substance use: never Gender identity (if verbalized by the patient): Female Spiritual care concerns: No Comments At time of signature, agree with nursing past medical, surgical, social and family history. There is no relevant family history pertinent to the presenting complaint Exam Narrative: GENERAL: Well-appearing, well-nourished, and in no acute distress. HEAD: Normocephalic EYES: PERRLA, conjunctivae clear ENT: Nares clear, turbinates edematous and erythematous, clear discharge. Mucous membranes moist. TM pearly guzman with dull light reflex bilaterally; no tragal tenderness. Oropharynx erythematous without lesions. Tonsils not enlarged and without exudate, no drooling, no hoarseness, no trismus, uvula midline.post nasal drainage NECK: Supple. No lymphadenopathy CHEST: Clear to auscultation, breath sounds equal. No wheezing, rhonchi, rales, or stridor. No respiratory distress, speaks in full sentences. frequent cough noted SAO2 99% on room air HEART: Regular rate and rhythm. No murmur heard. SKIN: Warm, dry, no rash. NEURO: Alert and oriented x3. PSYCH: Normal mood and affect Course Course Emergency Course: Patient is aware of diagnosis, understands and agrees to treatment plan.? Anticipatory guidance given.? Patient agrees to follow-up as directed and is aware of reasons to seek care at the emergency department. Portions of this record may have been created with voice recognition software Level of Care: Express Care Visit Vital Signs Vital signs: Vital Signs Temperature 36.2 C L 10/24/24 14:59 Pulse Rate 112 H 10/24/24 14:59 Respiratory Rate 16 10/24/24 14:59 Blood Pressure 148/97 H 10/24/24 14:59 Pulse Oximetry 99 10/24/24 14:59 Oxygen Delivery Room Air 10/24/24 14:59 Temperature 36.2 C L 10/24/24 14:59 Pulse Rate 112 H 10/24/24 14:59 Respiratory Rate 16 10/24/24 14:59 Blood Pressure 148/97 H 10/24/24 14:59 Pulse Oximetry 99 10/24/24 14:59 Oxygen Delivery Room Air 10/24/24 14:59 Reviewed MDM - URI/Sore Throat MDM Narrative Medical decision making narrative: Differential diagnosis considered: Castellon virus, strep pharyngitis, allergic rhinitis, upper respiratory tract infection, sinusitis, rhinosinusitis, nasopharyngitis. viral pharyngitis, otitis media, otitis externa, pneumonia, bronchitis, viral cough syndrome, viral syndrome, and influenza.? Exam findings show no acute concerns or changes; patient is non-toxic appearing and is in no distress.? Patient is appropriate for outpatient treatment and follow-up. Differential Diagnosis Differential diagnosis: Likely upper respiratory infection, viral infection, influenza and other ( acute cough) Medical Records Attestation: I reviewed the patient's medical records. Lab Data Attestation: I reviewed the patient's lab results. Lab results narrative: Influenza A positive, Influenza B negative Labs: Lab Results 10/24/24 10/24/24 Range/Units 15:00 16:15 POC Influenza A Ag Positive Negative (Negative) POC Influenza B Ag Negative Negative (Negative) reviewed Critical Care Time Critical Care Time Critical Care Time: No Discharge Plan Discharge Clinical Impression: Influenza A Patient Disposition: Home, Self-Care Condition: Stable Instructions: Antibiotic Form, Influenza (ED) Additional Instructions: Increase fluids especially juices and water [id number] cough and cold medicine of your choice for your symptoms Prescription cough medicine as directed--caution drowsiness and no driving or alcohol Zyrtec Claritin or Sade daily Alternate Tylenol and ibuprofen for any fever pain heat to the face 20-30 minutes 4-6 times a day for pain Salt water gargles, throat lozenges or throat sprays as desired You must be fever free for 24 hours without use of Tylenol or ibuprofen before you can return to work typically influenza last about 5 days from start of symptoms You must quarantine until that time. Monitor fevers Patient Language: [place] Prescriptions: New promethazine-DM 6.25-15 mg/5 mL syrup 5 ml PO Q4-6H PRN (Reason: cough) Qty: 118 0RF Rx Instructions: for cough No Action Mirena 21 mcg/24hr (up to 8 yrs) 52 mg intrauterine device 1 device intrauterine ONCE Rx Instructions: as a single dose Follow-up/Referrals: PHYSICIAN,LEGAL SPECIALIST [Primary Care Provider] - Stand Alone Forms: Work/School Release IP Time of Disposition: 15:21 Quality Isola Coma Scale Eyes: Open Verbal: Oriented and Alert Motor: Follows Commands Isola Coma Total Score: 15
[2024-10-24 16:17] LABS: EDINFLUASCREEN Negative (Negative); EDINFLUBSCREEN Negative (Negative)
[2024-10-24 16:17] LABS: EDINFLUASCREEN Positive (Negative); EDINFLUBSCREEN Negative (Negative)
== END 2024-10-24 15:28 | disposition home or self-care (01) ==
PROVIDERS: Emergency Provider Registered Nurse
DX: J10.1 Influenza due to other identified influenza virus with other respiratory manifestations (principal); E11.9 Type 2 diabetes mellitus without complications; I10 Essential (primary) hypertension; K21.9 Gastro-esophageal reflux disease without esophagitis; L71.9 Rosacea, unspecified
CPT/HCPCS: 87804; 99213; G0463

== ENCOUNTER 2025-04-17 16:23 | Emergency (ER) | payer BC, SELFPAY ==
--- OUTSIDE RECORDS SUMMARY | 2025-04-17 16:26 | XMS_ITS | Clinical Summary ---
Author Organization [facility] Address [address] [place] [address] Care Team Providers Care Saw Grinder Name Role Phone Unavailable Primary Care Provider Unavailabl e Source Comments [facility],non-owned Affiliates and Associated Physician Practices is amultiple site organization consisting of ambulatory clinics and hospital sitesin [place], [place], [place] and [place]. This disclosure is being madepursuant to the Care Everywhere program and may not contain all information available regarding this patient. Last updated 18.[facility] Trippy Bandz Allergies No known active allergies Medications * Be aware that medications may not be up to date on this document. Alwaysverify current medications with the patient. No known medications Active Problems No known active problems Social History Tobacco Use Types Packs/Day Years Used Date Smoking Tobacco: Never Smokeless Tobacco: Never Comments No Sex and Gender Information Value Date Recorded Sex Assigned at Not on file Legal Sex Female 1:04 PM CDT Gender Identity Not on file Sexual Orientation [...] 10:39 AM CDT Height 165.1 cm (5' 5) 04/03/2020 3:42 PM CDT Body Mass Index 38.77 04/03/2020 3:42 PM CDT Plan of Treatment Health Maintenance Due Date Last Done Comments HIV SCREENING 2004 HEPATITIS C SCREENING 11/02/2007 DTAP/TDAP/TD VACCINES (1 - Tdap) 2008 HEPATITIS B VACCINE (1 of 3 - 19+ 3-dose series) 2008 HPV VACCINE (1 - 3-dose SCDM series) 2016 COVID-19 VACCINE (1 - 2023-2 5 season) 2024 DEPRESSION SCREENING 08/11/2024 INFLUENZA VACCINE (#1) 2025 ZOSTER VACCINE (1 of 2) 11/07/2039 HIB [...] on patient's age to complete this topic Insurance [facility]
[2025-04-17 16:32] VITALS: BP 150/105; PULSE 92; RESP 16; TEMP 36.6; O2SAT 100
--- NOTE | 2025-04-17 17:12 | ED.EAR ---
HPI - Ear Problem General Chief complaint: Ear Stated complaint: Ear discharge Time Seen by Provider: 04/17/25 16:45 Source: patient and RN notes reviewed Mode of arrival: ambulatory Limitations: no limitations History of Present Illness HPI Narrative: 34-year-old female presents Express Care complaining bilateral ear drainage in right ear pain since yesterday. Patient reports clear/yellow drainage coming out of her ears. Patient's his right ear is tender. Patient does use recently sick 1 week ago but reports feeling better. Patient denies any cough, congestion, runny nose, sore throat, chest pain, shortness of breath, nausea, vomiting, diarrhea, tinnitus, dizziness, or any other symptoms. Patient denies any recent swimming. Related Data Home Medications ?Medication ?Instructions ?Recorded ?Confirmed ?Last Taken ?Type levonorgestrel (Mirena) 1 device intrauterine ONCE 10/24/24 Unknown History Allergies Allergy/AdvReac Type Severity Reaction Status Date / Time Penicillins Allergy Hives Verified 04/17/25 16:36 Review of Systems Review of Systems: CONSTITUTIONAL: Denies fever, chills, or sweats. EYES: Denies visual changes, redness, or discharge. ENT: Denies rhinorrhea, congestion, sore throat. Positive for otalgia and otorrhea. CARDIOVASCULAR: Denies chest pain, palpitations, or edema. RESPIRATORY: Denies cough or dyspnea. GASTROINTESTINAL: Denies abdominal pain, nausea, vomiting, or diarrhea. GENITOURINARY: Denies dysuria or hematuria. SKIN: Denies rash or itching. MUSCULOSKELETAL: Denies back pain, joint pain, or myalgia. NEUROLOGIC: Denies headache, numbness, or weakness. PSYCHIATRIC: Denies anxiety or depression. All other systems reviewed are negative, except as documented in HPI. [facility] Past Medical History Medical History Rosacea Diabetes Hypertension GERD (gastroesophageal reflux disease) Surgical History Surgical History No pertinent past surgical history Family History Family History Mother Family history non-contributory Social History Social History Smoking status: Never smoker Substance use: never Gender identity (if verbalized by the patient): Female Spiritual care concerns: No Comments At the time of my signature, I reviewed and agree with the nursing past medical, surgical, social, and family history. There is no relevant family history pertinent to the patient complaint. Exam Narrative: GENERAL: This is a well-nourished, well-developed adult, in no apparent distress. They are non ill-appearing, nontoxic appearing. HEAD: normocephalic, atraumatic. EYES: Sclera clear/white. Conjunctiva normal. Vision is grossly intact. Extraocular movements intact EARS: External ears normal, auditory canals erythematous bilaterally, right auditory canal worse than left, no obvious discharge, no tragal tenderness. TMs normal without perforation. Hearing grossly intact. NOSE: External nose normal with no obvious nasal discharge, nasal turbinates without redness, no rhinorrhea. THROAT: Mucous membranes moist, posterior pharynx clear, without erythema or swelling. Uvula midline. NECK: Neck supple, non-tender without lymphadenopathy, masses or thyromegaly. CARDIOVASCULAR: Regular rate and rhythm without murmurs, gallops, or rubs. RESPIRATORY: Clear to auscultation. Breath sounds equal bilaterally. No wheezes, rales, or rhonchi. SKIN: warm, Dry, intact with no suspicious lesions or rash, good texture and turgor. NEURO: awake, alert, and oriented to person, place and time. There were no obvious focal neurologic abnormalities. EXTREMITIES: No joint tenderness, effusion, or edema noted. Course Course Emergency Course: Portions of this record may have been created with voice recognition software Level of Care: Express Care Visit Vital Signs Vital signs: Vital Signs Temperature 97.8 F 04/17/25 16:32 Pulse Rate 92 04/17/25 16:32 Respiratory Rate 16 04/17/25 16:32 Blood Pressure 150/105 H 04/17/25 16:32 Pulse Oximetry 100 04/17/25 16:32 Oxygen Delivery Room Air 04/17/25 16:32 Temperature 97.8 F 04/17/25 16:32 Pulse Rate 92 04/17/25 16:32 Respiratory Rate 16 04/17/25 16:32 Blood Pressure 150/105 H 04/17/25 16:32 Pulse Oximetry 100 04/17/25 16:32 Oxygen Delivery Room Air 04/17/25 16:32 Reviewed Medical Decision Making MDM Narrative Medical decision making narrative: Patient likely has otitis externa worse on the right and left will go ahead and treat both with ofloxacin ear drops. Discussed physical exam findings. Advised supportive measures and signs/symptoms to go to the ER. Pt is appropriate for outpt treatment and f/u. Differential Diagnosis Differential Diagnosis: Otitis media, otitis externa, upper respiratory infection Vital Signs Vital Signs: Vital Signs Temperature 97.8 F 04/17/25 16:32 Pulse Rate 92 04/17/25 16:32 Respiratory Rate 16 04/17/25 16:32 Blood Pressure 150/105 H 04/17/25 16:32 Pulse Oximetry 100 04/17/25 16:32 Oxygen Delivery Room Air 04/17/25 16:32 Temperature 97.8 F 04/17/25 16:32 Pulse Rate 92 04/17/25 16:32 Respiratory Rate 16 04/17/25 16:32 Blood Pressure 150/105 H 04/17/25 16:32 Pulse Oximetry 100 04/17/25 16:32 Oxygen Delivery Room Air 04/17/25 16:32 Critical Care Time Critical Care Time Critical Care Time: No Discharge Plan Discharge Clinical Impression: Otitis externa Qualifiers: Otitis externa type: diffuse Chronicity: acute Laterality: bilateral Qualified Code(s): H60.313 - Diffuse otitis externa, bilateral Patient Disposition: Home Condition: Stable Instructions: Antibiotic Form, How to Use Ear Drops (ED), Ear Infection (ED) Additional Instructions: Take antibiotic drops as directed. You may take ibuprofen 600 mg to 800 mg every 6-8 hours. Do not exceed more than 800 mg of ibuprofen per dose. Do not exceed more than 3200 mg ibuprofen in a day. You may take up to 1000 mg Tylenol every 6-8 hours. Do not exceed 1000 mg per dose, do exceed more than 4000 mg of Tylenol in a day. Avoid water or anything into the ear for one week, do not use peroxide in your ears. Follow up with your personal physician for further evaluation and treatment within 3-5days. If your symptoms persist, change or worsen significantly, go to the emergency department for further evaluation. Patient Language: Turkish Prescriptions: New ofloxacin 0.3 % drops 10 drp EACH EAR DAILY 7 Days Qty: 10 0RF No Action Mirena 21 mcg/24hr (up to 8 yrs) 52 mg intrauterine device 1 device intrauterine ONCE Rx Instructions: as a single dose Follow-up/Referrals: George Kaiser MD [Physician, Family Practice] Time of Disposition: 16:56
== END 2025-04-17 17:00 | disposition home or self-care (01) ==
DX: H60.313 Diffuse otitis externa, bilateral (principal); E11.9 Type 2 diabetes mellitus without complications; I10 Essential (primary) hypertension; K21.9 Gastro-esophageal reflux disease without esophagitis; L71.9 Rosacea, unspecified
CPT/HCPCS: 99213; G0463